=== PATIENT | male | born 1995 | race American Indian/Alaskan Native ===

== ENCOUNTER 2016-08-27 10:22 | Emergency (ER) | payer MEDICAID, OTHER ==
[2016-08-27 13:28] LABS: Basophils % (Auto) 0.6 % (0.0-1.8); Eosinophils % (Auto) 0.6 % (0.0-4.3); Hematocrit 43.6 % (35.5-45.6); Hemoglobin 13.5 gm/dl (11.8-15.2); Mean Corpuscular HGB Conc 31 % (32-34); Mean Corpuscular Hemoglobin 26 pg (28-32); Mean Corpuscular Volume 84 fl (84-94); Platelet Count 134 K/mm3 (140-440); Red Blood Count 5.19 M/mm3 (3.65-5.03)
[2016-08-27] MEDS ORDERED: NACL 0.9% 1000 ML 1,000 ML IV ONE (13:35)
[2016-08-27 13:40] LABS: Urine Drugs of Abuse Note Disclamer
[2016-08-27 13:52] LABS: Anion Gap 21 mmol/L; Blood Urea Nitrogen 15 mg/dL (9-20); Calcium 9.6 mg/dL (8.4-10.2); Carbon Dioxide 21 mmol/L (22-30); Chloride 99.6 mmol/L (98-107); Glucose 66 mg/dL (75-100); Potassium 4.3 mmol/L (3.6-5.0); Sodium 137 mmol/L (137-145)
[2016-08-27 13:54] LABS: Bilirubin,Urine NEG (Negative); Blood,Urine SM (Negative); Ketones,Urine 20 mg/dL (Negative); Leukocyte Esterase,Urine NEG (Negative); Mucus,Urine FEW /HPF; Nitrite,Urine NEG (Negative); Protein,Urine <15 mg/dL mg/dL (Negative); RBC,Urine < 1.0 /HPF (0.0-6.0); Urobilinogen,Urine < 2.0 mg/dL (<2.0); WBC,Urine < 1.0 /HPF (0.0-6.0)
--- NOTE | 2016-08-27 13:57 | Emergency Department Report ---
ED Psych HPI - General Chief Complaint: Psych Stated Complaint: MENTAL HEALTH Time Seen by Provider: 08/27/16 12:56 Source: EMS Mode of arrival: Stretcher Limitations: Other - History of Present Illness Initial Comments: 21-year-old male presents to the emergency department via EMS for mental health evaluation. History is obtained from EMS due to his current clinical condition. Per report, the patient called EMS because he has not been sleeping for the past 3 days. He reports using ecstasy and mildly. EMS states that the patient was able to jump out of the ambulance at 1. but he was able to be placed back in and was. EMS sedated the patient with Versed and Haldol. EMS reports that the patient was complaining of auditory hallucinations. There is no report of suicidal or homicidal ideation. On arrival, the patient remained sedated after medication. Further history is unable to be obtained from patient. MD Complaint: altered mental status -: Gradual, days(s) (3) Associated Psychiatric Symptoms: auditory hallucinations History of same: Yes Quality: constant Improves With: medication Worsens With: none Context: recent drug abuse Treatments Prior to Arrival: chemical restraints - Related Data Home Medications Medication Instructions Recorded Confirmed Last Taken No Known Home Medications [No 08/27/16 08/27/16 Unknown Reported Home Medications] Allergies Allergy/AdvReac Type Severity Reaction Status Date / Time Unable to Assess Allergy Unverified 08/27/16 12:17 ED Review of Systems ROS: Stated complaint: MENTAL HEALTH Other details as noted in HPI Comment: Unobtainable due to pts medical conditions ED Past Medical Hx - Past Medical History Previous Medical History?: Yes Hx Psychiatric Treatment: Yes (schzophrenia) - Surgical History Past Surgical History?: No - Family History Family history: no significant - Social History Smoking Status: Unknown if ever smoked Substance Use Type: Other - Medications Home Medications: Home Medications Medication Instructions Recorded Confirmed Last Taken Type No Known Home Medications [No 08/27/16 08/27/16 Unknown History Reported Home Medications] ED Physical Exam - General Limitations: Altered Mental Status General appearance: in no apparent distress, other (sedated) - Head Head exam: Present: atraumatic, normocephalic - Eye Eye exam: Present: normal appearance, PERRL, EOMI - ENT ENT exam: Present: normal exam, normal orophraynx, mucous membranes moist - Neck Neck exam: Present: normal inspection, full ROM. Absent: tenderness - Respiratory Respiratory exam: Present: normal lung sounds bilaterally. Absent: respiratory distress - Cardiovascular Cardiovascular Exam: Present: regular rate, normal rhythm, normal heart sounds - GI/Abdominal GI/Abdominal exam: Present: soft, normal bowel sounds. Absent: distended, tenderness - Extremities Exam Extremities exam: Present: normal inspection, full ROM. Absent: tenderness - Back Exam Back exam: Present: normal inspection, full ROM. Absent: tenderness - Neurological Exam Neurological exam: Present: altered (sedated with medication prehospital). Absent: motor sensory deficit - Skin Skin exam: Present: warm, dry, intact ED Course Vital Signs 08/27/16 12:51 Temperature 96.6 F L Pulse Rate 58 L Respiratory 16 Rate Blood Pressure 129/91 [Right] O2 Sat by Pulse 100 Oximetry ED Medical Decision Making - Lab Data Result diagrams: 08/27/16 12:40 08/27/16 12:40 - Medical Decision Making Laboratory results reviewed. Form 1013 has been signed and placed on the patient's chart. Patient has been medically cleared and is awaiting mental health evaluation for inpatient placement. - Differential Diagnosis schizophrenia, drug abuse Critical care attestation.: If time is entered above; I have spent that time in minutes in the direct care of this critically ill patient, excluding procedure time. ED Disposition Clinical Impression: Schizoaffective disorder, bipolar type, Polysubstance abuse Disposition: DC/TX PSY HOSP/PSY UNIT Is pt being admited?: No Condition: Stable Referrals: PRIMARY CARE, [Primary Care Provider] - 3-5 Days Forms: Work/School Release Form(ED) Time of Disposition: 17:06
--- NOTE | 2016-08-28 15:39 | Consultation ---
History of Present Illness - Reason for Consult Consult date: 08/28/16 Reason for consult: Mental Health Evaluation Requesting physician: LAVELLE MATTA - Chief Complaint Chief complaint: "I am ready to go home" - History of Present Psychiatric Illness 21-year-old male presents to the emergency department via EMS for mental health evaluation. History is obtained from EMS due to his current clinical condition. Today patient is uncooperative and irritable about being at [facility]. He stated, "All I did was use some drugs." Patient hyper verbal and I had to interject. He would continue to talk while I was asking him questions. He stated to me to call his mother if I had any questions about him. He would not give me his mothers number. Patient refused to answer anymore questions once he told me to contact his mother. No gestures of SI/HI's and AVH's. Medications and Allergies Allergies Allergy/AdvReac Type Severity Reaction Status Date / Time Unable to Assess Allergy Unverified 08/27/16 12:17 Home Medications Medication Instructions Recorded Confirmed Last Taken Type No Known Home Medications [No 08/27/16 08/27/16 Unknown History Reported Home Medications] Mental Status Exam - Vital signs Last Vital Signs Temp 98.2 F 08/28/16 09:55 Pulse 45 L 08/28/16 09:55 Resp 16 08/28/16 09:55 BP 115/61 08/28/16 09:55 Pulse Ox 100 08/28/16 09:55 - Exam Narrative exam: . ROS: possible manic MSE: Appearance: uncooperative, irritable Behavior: poor eye contact Speech: regular rate and tone Mood: "I am good" Affect: congruent to mood Thought Process: tangential Thought Content: no gestures of SI/HI's and AVH's Motor Activity: sitting up in bed Cognition: a/ox 3 Insight: poor Judgment: poor Results Result Diagrams: 08/27/16 12:40 08/27/16 12:40 All other labs normal. Assessment and Plan Assessment and plan: Impression: Substance induced psychosis, Unspecified Mood DO, Cannabis Use DO, Substance Use DO (amphetamines). 21-year-old male presents to the emergency department via EMS for mental health evaluation. History is obtained from EMS due to his current clinical condition. Today patient is uncooperative and irritable about being at [facility]. He stated, "All I did was use some drugs." Patient hyper verbal and I had to interject. He would continue to talk while I was asking him questions. No gestures of SI/HI's and AVH's. Patient positive for amphetamines, benzos, and marijuana. No acute withdrawals noted (benzos). DD: R/O Bipolar Recommendation/Plan: Continue 1013 with placement to inpatient psy services. Gather more collateral infor to help determine treatment.
[2016-08-28 16:57] VITALS: BP 120/74
== END 2016-08-28 16:58 ==
LOC: ED 10:22
DX: F20.9 Schizophrenia, unspecified (principal); F31.9 Bipolar disorder, unspecified; F19.10 Other psychoactive substance abuse, uncomplicated
CPT/HCPCS: 36415; 80048; 80307; 81001; 85025; 96360; 96361; 99285; G0480; J7030; 80320

== ENCOUNTER 2016-09-05 14:16 | Emergency (ER) | payer SELFPAY ==
--- NOTE | 2016-09-05 22:38 | Emergency Department Report ---
Upper Extremity - HPI Chief Complaint: Extremity Injury, Upper Stated Complaint: LEFT ARM SWELLING AFTER IV Time Seen by Provider: 09/05/16 22:33 Upper Extremity: Left Wrist (pt states he has "swollen vein" where he had and IV in left wrist x2 weeks ago) Occurred When: >5 Days (2 weeks) Mechanism: Other (had IV fluid administered here 2 weeks ago) Severity: moderate Symptoms: No Pain with Movement, No Deformity, No Limited Range of Movement, No Numbness, No Weakness, No Swelling (pt reports " vein swelling left wrist"), No Bruising/Ecchymosis, No Laceration or Abrasion Other History: 21-year-old male past medical history alcohol, marijuana, ecstasy abuse presents with complaint of discomfort overlying the left wrist. Patient states he was treated in the ED 2 weeks ago for ecstasy overdose, states that he had an IV in his left wrist and that the IV site is bothering him somewhat and feels somewhat hard. Patient denies any other complaints. States he has had mild flushed sensation and left wrist/forearm region for 2 weeks intermittently. Has not used any medicines denies any direct trauma denies any fever or chills. Denies any active drug use at this time. Patient is visibly ranging his left forearm and wrist. ED Review of Systems ROS: Stated complaint: LEFT ARM SWELLING AFTER IV Other details as noted in HPI Constitutional: denies: chills, fever Eyes: denies: eye pain, eye discharge, vision change ENT: denies: ear pain, throat pain Respiratory: denies: cough, shortness of breath, wheezing Cardiovascular: denies: chest pain, palpitations Endocrine: no symptoms reported Gastrointestinal: denies: abdominal pain, nausea, diarrhea Genitourinary: denies: urgency, dysuria Musculoskeletal: denies: back pain, joint swelling, arthralgia Skin: as per HPI (patient had IV and left wrist 2 weeks ago). denies: rash, lesions Neurological: denies: headache, weakness, paresthesias Psychiatric: denies: anxiety, depression Hematological/Lymphatic: denies: easy bleeding, easy bruising ED Past Medical Hx - Past Medical History Previous Medical History?: Yes Hx Psychiatric Treatment: Yes (schzophrenia) - Surgical History Past Surgical History?: No - Social History Smoking Status: Current Every Day Smoker Substance Use Type: Alcohol, Non Opiate Pain, Prescribed - Medications Home Medications: Home Medications Medication Instructions Recorded Confirmed Last Taken Type Ibuprofen [Motrin] 600 mg PO Q8H PRN #30 tablet 09/05/16 Unknown Rx Upper Extremity Exam - Exam General: Vital signs noted. No distress. Alert and acting appropriately. Head and Torso: No HEENT Abnormality, No Neck Tenderness, No Chest/Lungs Abnormality, No Abdominal Tenderness, No Back Tenderness Shoulder Exam: Yes Normal Range of Motion in Shoulder, No Shoulder Tenderness, No Clavicle Tenderness, No Shoulder Deformity, No AC Joint Tenderness Arm Exam: No Arm/Humerus Tenderness, No Arm Deformity Elbow: No Elbow Tenderness, No Normal Range of Motion in Elbow, No Elbow Deformity Forearm: No Forearm Tenderness, No Forearm Deformity, No Pain with Pronation, No Pain with Supination Wrist: Yes Wrist Tenderness (patient has palpable cordlike segments approximately 5 cm overlying left wrist of slightly indurated superficial vein. No visible cellulitis no visible abscess range of motion hand wrist fingers form fully intact on clinical exam no overt signs of infection.), Yes Normal ROM in Wrist, No Wrist Deformity, No Snuffbox Tenderness, No Pain with Axial Thumb Compression Hand: Yes Normal ROM in Digit(s), No Hand Tenderness, No Hand Deformity, No Digit Tenderness, No Digit(s) Deformity, No Tendon Dysfunction CMS Exam: Yes Normal Distal Pulses (distal radial and brachial and ulnar pulses are intact on clinical exam), Yes Normal Capillary Refill (capillary refill less than 1 second), Yes Normal Distal Sensation (distal sensation is fully intact), No Broken Skin Hand L/R Back: 1 - ~ 5cm segement of cord-like superficial vein induration, no erythema, no palpable thrills or audible bruits, ED Course Vital Signs 09/05/16 15:00 Temperature 98.7 F Pulse Rate 55 L Respiratory 20 Rate Blood Pressure 126/85 O2 Sat by Pulse 100 Oximetry ED Medical Decision Making - Medical Decision Making A/P: Left wrist superficial thrombophlebitis 1-warm compresses and NSAIDs for symptomatic relief as per [facility] recommendations as per up-to-date[facility]com recommendations 2- case d/w Dr. Falk before discharge 3- as pt state he had mild discomfort in bicep region will send pt for UE Duplex tomorrow as vascular lab is closed now, has no visible swelling of extremity on exa and ROM, distal pulses, distal sensatio is fully intact in limb. based on exam and history is unlikely to be DVT in UE. 4- referral to PMD and vascular surgery. i educated pt on this topic and advised him to return to ED if he experiences entire arm swelling, ecchymosis, sever pain, i showed pt and his family members examples of what UE DVTs look like Critical care attestation.: If time is entered above; I have spent that time in minutes in the direct care of this critically ill patient, excluding procedure time. ED Disposition Clinical Impression: Superficial thrombophlebitis Qualifiers: Superficial thrombophlebitis-Involved body area: upper extremity Laterality: left Qualified Code(s): I80.8 - Phlebitis and thrombophlebitis of other sites Disposition: TO HOME OR SELFCARE Is pt being admited?: No Does the pt Need Aspirin: No Condition: Undetermined Instructions: Superficial Thrombophlebitis (ED) Additional Instructions: Patient presents to the vascular lab tomorrow for upper extremity duplex. I advised the patient to return to the ED if he isn't advised by the crime lab technician that he has a large clot. Patient states that he understood these instructions. Prescriptions: Ibuprofen [Motrin] 600 mg PO Q8H PRN #30 tablet PRN Reason: Pain Referrals: [facility] [Outside] - 3-5 Days ALMA ROBERTSON MD [Staff Physician] - 3-5 Days RYLAN RIDLEY MD [Staff Physician] - 3-5 Days Forms: Accompanied Note, Work/School Release Form(ED) Time of Disposition: 22:45
[2016-09-05 22:57] VITALS: BP 117/70
== END 2016-09-05 22:56 | disposition home or self-care (01) ==
LOC: ED 14:16
DX: I80.8 Phlebitis and thrombophlebitis of other sites (principal); F20.9 Schizophrenia, unspecified; F17.200 Nicotine dependence, unspecified, uncomplicated
CPT/HCPCS: 99282

== ENCOUNTER 2017-09-05 15:08 | Emergency (ER) | payer SELFPAY ==
[2017-09-05 15:26] VITALS: BP 149/79
--- NOTE | 2017-09-05 18:17 | Emergency Department Report ---
- General Chief Complaint: Extremity Injury, Upper Stated Complaint: LEFT ARM INJURY Time Seen by Provider: 09/05/17 17:21 Source: patient Mode of arrival: Ambulatory Limitations: No Limitations - History of Present Illness Initial Comments: 22-year-old male presents with complaint of laceration above his left elbow. Sustained last night. States he jumped over a fence and the fence cut his left elbow region. Does not know last tetanus up-to-date. Denies any other injuries. Onset/Timin -: days(s) Extremity Location: Left: Arm (laceration above the left elbow to) 1 - laceration Context: accidental - Related Data Previous Rx's Medication Instructions Recorded Last Taken Type Ibuprofen [Motrin] 600 mg PO Q8H PRN #30 tablet 09/05/16 Unknown Rx Cephalexin [Keflex] 500 mg PO Q12HR #14 cap 09/05/17 Unknown Rx Ibuprofen [Motrin] 800 mg PO Q8HR PRN #25 tablet 09/05/17 Unknown Rx Allergies Allergy/AdvReac Type Severity Reaction Status Date / Time pollen extracts Allergy Shortness Verified 09/05/16 15:00 of Breath ED Review of Systems ROS: Stated complaint: LEFT ARM INJURY Other details as noted in HPI Constitutional: denies: chills, fever Eyes: denies: eye pain, eye discharge, vision change ENT: denies: ear pain, throat pain Respiratory: denies: cough, shortness of breath, wheezing Cardiovascular: denies: chest pain, palpitations Endocrine: no symptoms reported Gastrointestinal: denies: abdominal pain, nausea, diarrhea Genitourinary: denies: urgency, dysuria Musculoskeletal: denies: back pain, joint swelling, arthralgia Skin: denies: rash, lesions Neurological: denies: headache, weakness, paresthesias Psychiatric: denies: anxiety, depression Hematological/Lymphatic: denies: easy bleeding, easy bruising ED Past Medical Hx - Past Medical History Previous Medical History?: Yes Hx Psychiatric Treatment: Yes (schzophrenia) - Surgical History Past Surgical History?: No - Social History Smoking Status: Current Every Day Smoker Substance Use Type: Alcohol, Marijuana - Medications Home Medications: Home Medications Medication Instructions Recorded Confirmed Last Taken Type Ibuprofen [Motrin] 600 mg PO Q8H PRN #30 tablet 09/05/16 Unknown Rx Cephalexin [Keflex] 500 mg PO Q12HR #14 cap 09/05/17 Unknown Rx Ibuprofen [Motrin] 800 mg PO Q8HR PRN #25 tablet 09/05/17 Unknown Rx ED Physical Exam - General Limitations: No Limitations General appearance: alert, in no apparent distress - Head Head exam: Present: atraumatic, normocephalic - Eye Eye exam: Present: normal appearance, PERRL, EOMI - ENT ENT exam: Present: mucous membranes moist - Neck Neck exam: Present: normal inspection - Respiratory Respiratory exam: Present: normal lung sounds bilaterally. Absent: respiratory distress - Cardiovascular Cardiovascular Exam: Present: regular rate, normal rhythm. Absent: systolic murmur, diastolic murmur, rubs, gallop - GI/Abdominal GI/Abdominal exam: Present: soft, normal bowel sounds - Rectal Rectal exam: Present: deferred - Extremities Exam Extremities exam: Present: normal inspection - Expanded Upper Extremity Exam Left Upper Arm exam: Present: normal inspection, full ROM Elbow exam: Present: tenderness, laceration Forearm Wrist exam: Present: normal inspection, full ROM Hand Wrist exam: Present: full ROM Neuro motor exam: Present: wrist extension intact, thumb opposition intact, thumb IP flexion intact, thumb adduction intact, fingers 2-5 abduction intact, other - Back Exam Back exam: Present: normal inspection - Neurological Exam Neurological exam: Present: alert, oriented X3 - Psychiatric Psychiatric exam: Present: normal affect, normal mood - Skin Skin exam: Present: warm, dry, intact, normal color. Absent: rash ED Course Vital Signs 09/05/17 15:19 Temperature 98.7 F Pulse Rate 69 Respiratory 18 Rate Blood Pressure 149/79 O2 Sat by Pulse 96 Oximetry - Laceration /Wound Repair Left Lateral Proximal Elbow Wound Location: upper extremity (left upper elbow region) Wound Length (cm): 3 Wound's Depth, Shape: linear Irrigated w/ Saline (ccs): 500 Anesthesia: 1% Lidocaine Volume Anesthetic (ccs): 6 Wound Repaired With: sutures Suture Size/Type: 4:0, proline Number of Sutures: 5 Progress: Gaited with saline 2-500 mL. Anesthetized with lidocaine without epi good local anesthesia achieved. Good approximation achieved using Prolene sutures. 5 placed. Covered with gauze afterward. ED Medical Decision Making - Medical Decision Making A/P: Left arm laceration 1-sutures to be removed in 7-10 days 2-tetanus updated 3-Motrin when necessary, triple antibiotic ointment, short course Keflex 4- pt advised to return to the ED for any fevers chills pus drainage erythema at site of laceration Critical care attestation.: If time is entered above; I have spent that time in minutes in the direct care of this critically ill patient, excluding procedure time. ED Disposition Clinical Impression: Laceration of left upper arm Qualifiers: Encounter type: initial encounter Qualified Code(s): S41.112A - Laceration without foreign body of left upper arm, initial encounter Disposition: TO HOME OR SELFCARE Is pt being admited?: No Does the pt Need Aspirin: No Condition: Stable Instructions: Laceration (ED), Suture Care (ED) Additional Instructions: Sutures to be removed in 7-10 days. Prescriptions: Cephalexin [Keflex] 500 mg PO Q12HR #14 cap Ibuprofen [Motrin] 800 mg PO Q8HR PRN #25 tablet PRN Reason: Pain Referrals: [facility] [Provider Group] - 3-5 Days Forms: Work/School Release Form(ED) Time of Disposition: 18:52
[2017-09-05] MEDS ORDERED: BOOSTRIX IM ONE (18:21)
[2017-09-05] MEDS ORDERED: XYLOCAINE 2% INFILTRATI ONE (18:21)
== END 2017-09-05 19:10 | disposition home or self-care (01) ==
LOC: ED 15:08
DX: S51.012A Laceration without foreign body of left elbow, initial encounter (principal); F17.200 Nicotine dependence, unspecified, uncomplicated; F12.10 Cannabis abuse, uncomplicated; Z91.048 Other nonmedicinal substance allergy status; W17.89XA Other fall from one level to another, initial encounter; Y93.89 Activity, other specified; Y92.89 Other specified places as the place of occurrence of the external cause; Y99.8 Other external cause status
CPT/HCPCS: 90471; 90715; 99282

== ENCOUNTER 2017-10-03 15:34 | Emergency (ER) | payer OTHER ==
[2017-10-03 15:40] VITALS: BP 143/83
--- NOTE | 2017-10-03 18:11 | Emergency Department Report ---
Suture/Staple Removal - [facility] Chief Complaint: Laceration/Recheck/Suture Stated Complaint: SUTURE REMOVAL Time Seen by Provider: 10/03/17 16:39 When Sutures or Valeri Placed: 11-14 Days Ago Wound Location: suture removal left arm ED Review of Systems ROS: Stated complaint: SUTURE REMOVAL Other details as noted in HPI Constitutional: denies: chills, fever Eyes: denies: eye pain, eye discharge, vision change ENT: denies: ear pain, throat pain Respiratory: denies: cough, shortness of breath, wheezing Cardiovascular: denies: chest pain, palpitations Endocrine: no symptoms reported Gastrointestinal: denies: abdominal pain, nausea, diarrhea Genitourinary: denies: urgency, dysuria Musculoskeletal: denies: back pain, joint swelling, arthralgia Skin: denies: rash, lesions Neurological: denies: headache, weakness, paresthesias Psychiatric: denies: anxiety, depression Hematological/Lymphatic: denies: easy bleeding, easy bruising ED Past Medical Hx - Past Medical History Previous Medical History?: Yes Hx Psychiatric Treatment: Yes (schzophrenia) - Surgical History Past Surgical History?: No - Social History Smoking Status: Never Smoker Substance Use Type: None - Medications Home Medications: Home Medications Medication Instructions Recorded Confirmed Last Taken Type Ibuprofen [Motrin] 600 mg PO Q8H PRN #30 tablet 09/05/16 Unknown Rx Cephalexin [Keflex] 500 mg PO Q12HR #14 cap 09/05/17 Unknown Rx Ibuprofen [Motrin] 800 mg PO Q8HR PRN #25 tablet 09/05/17 Unknown Rx Suture Removal Exam - Exam General: Vital signs noted. No distress. Alert and acting appropriately. Wound: No Pathologic Erythema (wound appears well-healed and no dehiscence no signs of cellulitis or infection), No Tenderness, No Drainage, No Pus, No Wound Dehiscence Other Systems: All other systems reviewed and are unremarkable. ED Course Vital Signs 10/03/17 15:38 Temperature 98 F Pulse Rate 93 H Respiratory 16 Rate Blood Pressure 143/83 O2 Sat by Pulse 96 Oximetry ED Recheck MDM - Differential Diagnosis Suture/Staple Removal - Medical Decision Making A/P: Simple suture removal left arm 1-4 proline sutures easily removed from left arm. No wound dehiscence or signs of infection. Good wound approximation and healing achieved 2-patient given instructions on suture removal care Critical care attestation.: If time is entered above; I have spent that time in minutes in the direct care of this critically ill patient, excluding procedure time. ED Disposition Clinical Impression: Visit for suture removal Disposition: TO HOME OR SELFCARE Is pt being admited?: No Does the pt Need Aspirin: No Condition: Stable Instructions: Suture Removal (ED) Referrals: [facility] [Provider Group] - 3-5 Days Time of Disposition: 18:09
== END 2017-10-03 18:18 | disposition home or self-care (01) ==
LOC: ED 15:34
DX: Z48.01 Encounter for change or removal of surgical wound dressing (principal); S41.112D Laceration without foreign body of left upper arm, subsequent encounter; X58.XXXD Exposure to other specified factors, subsequent encounter

== ENCOUNTER 2020-02-27 18:13 | Emergency (ER) | payer SELFPAY | END 2020-02-27 20:55 | disposition left against medical advice (07) | LOC: ED 18:13 | DX: Z48.02 Encounter for removal of sutures (principal); Z53.21 Procedure and treatment not carried out due to patient leaving prior to being seen by health care provider ==